=== PATIENT | male | born 1970 | race Caucasian/White ===

== ENCOUNTER 2018-06-09 04:34 | Emergency (ER) | payer OTHER ==
[~2018-06-09 04:34] MED LIST: HYDR12.558 PO; IBUP-1618 PO; KET10 PO; LISI-1 PO; LISI-374 PO; LOR5 PO; METO-259 PO; OMEP-153 PO; SIMV-42 PO
--- NOTE | 2018-06-09 04:35 | ER Report ---
History and Physical Time Seen By MD: 04:35 HPI/ROS CHIEF COMPLAINT: Left flank pain HISTORY OF PRESENT ILLNESS: Patient is a 47-year-old male here with complaints of left-sided flank pain which started approximately 12:30 last night. Patient r eports nausea without vomiting, pain located in the "kidney area". Patient does report having difficulty urinating, radiation of pain into the left lower quadrant of the abdomen. Patient is afebrile, hemodynamically stable at time of evaluation. Patient did have a prior history of a small left-sided kidney stone in 2017 that presented in a similar fashion. REVIEW OF SYSTEMS: Constitutional: No fever, no chills. Eyes: No discharge. ENT: No sore throat. Cardiovascular: No chest pain, no palpitations. Respiratory: No cough, no shortness of breath. Gastrointestinal: + left sided abdominal pain, + nausea without vomiting, + left CVA tenderness. Genitourinary: + difficulty urinating Musculoskeletal: No back pain. Skin: No rashes. Neurological: No headache. Allergies: Coded Allergies: No Known Drug Allergies (Unverified , 06/09/18) Home Meds Active Scripts Tamsulosin Hcl (FLOMAX) 0.4 Mg Cap.er.24h, 0.4 MG PO QDAY, #14 CAP 0 Refills Prov:FELICIANO LINDSAY DO 06/09/18 Ondansetron 4 Mg Odt (ONDANSETRON 4 MG ODT) 4 Mg Tab.rapdis, 4 MG PO ONCE, #30 TAB Prov:FELICIANO LINDSAY DO 06/09/18 Tramadol Hcl (TRAMADOL HCL) 50 Mg Tablet, 50 MG PO Q6H PRN for PAIN, #12 TAB 0 Refills Prov:FELICIANO LINDSAY DO 06/09/18 Reported Medications Lisinopril (LISINOPRIL) 40 Mg Tablet, 60 MG PO QDAY, TAB 04/18/16 Metoprolol Succinate (Metoprolol Succinate) 50 Mg Tab.sr.24h, 50 MG PO DAILY 06/17/11 Discontinued Scripts Ketorolac Tromethamine (KETOROLAC TROMETHAMINE) 10 Mg Tab, 10 MG PO Q6H PRN for PAIN, #12 TAB Prov:JARETH COLES MD 04/18/16 Hx Substance Use Disorder: No Hx Alcohol Use: Yes (RARE) Constitutional Vital Sign - Last 24 Hours 06/09/18 04:38 Temp 97.6 Pulse 66 Resp 24 B/P (MAP) 146/91 Pulse Ox 93 O2 Delivery Room Air Physical Exam General Appearance: The patient is alert, has no immediate need for airway protection and no signs of toxicity. Uncomfortable appearing Eyes: Pupils equal and round no pallor or injection. ENT, Mouth: Mucous membranes are moist. Respiratory: There are no retractions, lungs are clear to auscultation. Cardiovascular: Regular rate and rhythm. Gastrointestinal: + tenderness on palpation of left CVA/LLQ abdomen Neurological: No focal deficits Skin: Warm and dry, no rashes. Musculoskeletal: Neck is supple non tender. Extremities are nontender, nonswollen and have full range of motion. DIFFERENTIAL DIAGNOSIS: After history and physical exam differential diagnosis was considered for abdominal pain including but not limited to gastritis and urinary tract infection, ureterolithiasis, musculoskeletal pain Medical Decision Making Data Points Result Diagram: 06/09/18 0451 06/09/18 0451 Laboratory Hematology Test 06/09/18 00:00 06/09/18 04:51 Urine Color Yellow Urine Clarity Slightly-cloudy Urine pH 5.0 pH (4.8-9.5) Urine Specific [place] 1.025 Urine Protein 30 mg/dL (NEGATIVE) Urine Glucose (UA) Negative mg/dL (NEGATIVE) Urine Ketones Negative mg/dL (NEGATIVE) Urine Blood Moderate (NEGATIVE) Urine Nitrite Negative (NEGATIVE) Urine Bilirubin Negative (NEGATIVE) Urine Urobilinogen Negative mg/dL (0.2-1.9) Urine Leukocyte Esterase Negative (NEGATIVE) Urine RBC 10 /HPF (0-2/HPF) Urine WBC 6 /HPF (0-5/HPF) Urine WBC Clumps Few /HPF Urine Squamous Epithelial Cells Few /LPF (</=FEW) Urine Calcium Oxalate Crystals Few /HPF (NONE) Urine Bacteria Few /HPF (NONE-FEW) Urine Mucus Few /HPF (NONE-FEW) Red Blood Count 5.01 M/uL (4.00-5.60) Mean Corpuscular Volume 93.3 fL (80.0-96.0) Mean Corpuscular Hemoglobin 32.7 pg (26.0-33.0) Mean Corpuscular Hemoglobin Concent 35.0 g/dL (32.0-36.0) Red Cell Distribution Width 13.5 % (11.5-14.5) Mean Platelet Volume 10.1 fL (7.2-11.1) Neutrophils (%) (Auto) 41.5 % (39.4-72.5) Lymphocytes (%) (Auto) 43.9 % (17.6-49.6) Monocytes (%) (Auto) 10.4 % (4.1-12.4) Eosinophils (%) (Auto) 3.5 % (0.4-6.7) Basophils (%) (Auto) 0.7 % (0.3-1.4) Nucleated RBC Relative Count (auto) 0.1 /100WBC Neutrophils # (Auto) 3.5 K/uL (2.0-7.4) Lymphocytes # (Auto) 3.7 K/uL (1.3-3.6) Monocytes # (Auto) 0.9 K/uL (0.3-1.0) Eosinophils # (Auto) 0.3 K/uL (0.0-0.5) Basophils # (Auto) 0.1 K/uL (0.0-0.1) Nucleated RBC Absolute Count (auto) 0.01 K/uL Sodium Level 138 mmol/L (137-145) Potassium Level 3.4 mmol/L (3.5-5.0) Chloride Level 107 mmol/L (98-107) Carbon Dioxide Level 21 mmol/L (22-30) Blood Urea Nitrogen 18 mg/dl (9-21) Creatinine 0.70 mg/dl (0.66-1.25) Glomerular Filtration Rate Calc > 60.0 Random Glucose 168 mg/dl (75-110) Calcium Level 9.3 mg/dl (8.4-10.2) Total Bilirubin 0.4 mg/dl (0.2-1.3) Aspartate Amino Transf (AST/SGOT) 30 U/L (0-35) Alanine Aminotransferase (ALT/SGPT) 60 U/L (0-56) Alkaline Phosphatase 143 U/L (0-126) Total Protein 7.0 g/dl (6.3-8.2) Albumin 4.3 g/dl (3.5-5.0) Lipase 172 U/L (23-300) Chemistry Test 06/09/18 00:00 06/09/18 04:51 Urine Color Yellow Urine Clarity Slightly-cloudy Urine pH 5.0 pH (4.8-9.5) Urine Specific [place] 1.025 Urine Protein 30 mg/dL (NEGATIVE) Urine Glucose (UA) Negative mg/dL (NEGATIVE) Urine Ketones Negative mg/dL (NEGATIVE) Urine Blood Moderate (NEGATIVE) Urine Nitrite Negative (NEGATIVE) Urine Bilirubin Negative (NEGATIVE) Urine Urobilinogen Negative mg/dL (0.2-1.9) Urine Leukocyte Esterase Negative (NEGATIVE) Urine RBC 10 /HPF (0-2/HPF) Urine WBC 6 /HPF (0-5/HPF) Urine WBC Clumps Few /HPF Urine Squamous Epithelial Cells Few /LPF (</=FEW) Urine Calcium Oxalate Crystals Few /HPF (NONE) Urine Bacteria Few /HPF (NONE-FEW) Urine Mucus Few /HPF (NONE-FEW) White Blood Count 8.4 k/uL (4.5-11.0) Red Blood Count 5.01 M/uL (4.00-5.60) Hemoglobin 16.4 g/dL (14.0-18.0) Hematocrit 46.7 % (42.0-52.0) Mean Corpuscular Volume 93.3 fL (80.0-96.0) Mean Corpuscular Hemoglobin 32.7 pg (26.0-33.0) Mean Corpuscular Hemoglobin Concent 35.0 g/dL (32.0-36.0) Red Cell Distribution Width 13.5 % (11.5-14.5) Platelet Count 227 K/uL (150-450) Mean Platelet Volume 10.1 fL (7.2-11.1) Neutrophils (%) (Auto) 41.5 % (39.4-72.5) Lymphocytes (%) (Auto) 43.9 % (17.6-49.6) Monocytes (%) (Auto) 10.4 % (4.1-12.4) Eosinophils (%) (Auto) 3.5 % (0.4-6.7) Basophils (%) (Auto) 0.7 % (0.3-1.4) Nucleated RBC Relative Count (auto) 0.1 /100WBC Neutrophils # (Auto) 3.5 K/uL (2.0-7.4) Lymphocytes # (Auto) 3.7 K/uL (1.3-3.6) Monocytes # (Auto) 0.9 K/uL (0.3-1.0) Eosinophils # (Auto) 0.3 K/uL (0.0-0.5) Basophils # (Auto) 0.1 K/uL (0.0-0.1) Nucleated RBC Absolute Count (auto) 0.01 K/uL Glomerular Filtration Rate Calc > 60.0 Calcium Level 9.3 mg/dl (8.4-10.2) Total Bilirubin 0.4 mg/dl (0.2-1.3) Aspartate Amino Transf (AST/SGOT) 30 U/L (0-35) Alanine Aminotransferase (ALT/SGPT) 60 U/L (0-56) Alkaline Phosphatase 143 U/L (0-126) Total Protein 7.0 g/dl (6.3-8.2) Albumin 4.3 g/dl (3.5-5.0) Lipase 172 U/L (23-300) Urinalysis Test 06/09/18 00:00 Urine Color Yellow Urine Clarity Slightly-cloudy Urine pH 5.0 pH (4.8-9.5) Urine Specific [place] 1.025 Urine Protein 30 mg/dL (NEGATIVE) Urine Glucose (UA) Negative mg/dL (NEGATIVE) Urine Ketones Negative mg/dL (NEGATIVE) Urine Blood Moderate (NEGATIVE) Urine Nitrite Negative (NEGATIVE) Urine Bilirubin Negative (NEGATIVE) Urine Urobilinogen Negative mg/dL (0.2-1.9) Urine Leukocyte Esterase Negative (NEGATIVE) Urine RBC 10 /HPF (0-2/HPF) Urine WBC 6 /HPF (0-5/HPF) Urine WBC Clumps Few /HPF Urine Squamous Epithelial Cells Few /LPF (</=FEW) Urine Calcium Oxalate Crystals Few /HPF (NONE) Urine Bacteria Few /HPF (NONE-FEW) Urine Mucus Few /HPF (NONE-FEW) EKG/Imaging Imaging PATIENT NAME: Betito Quiles : 1970 MR: [id number] V: [id number] EXAM DATE: ORDERING PHYSICIAN: FELICIANO LINDSAY TECHNOLOGIST: Location: [facility] Patient: Betito Quiles : 1970 Visit/Account:[id number] Date of Sevice: 06/09/2018 CT ABDOMEN PELVIS W/O CON HISTORY: Left flank pain. History of renal stones. COMPARISON: 04/18/2016. TECHNIQUE: Axial images were obtained from the lung bases through the symphysis pubis without intravenous contrast. Sagittal and coronal reformats were performed. One of the following dose optimization techniques was utilized in the performance of this exam: Automated exposure control; adjustment of the mA a nd/or kV according to the patient's size; or use of an iterative reconstruction technique. Specific details can be referenced in the facility's radiology CT exam operational policy. CONTRAST: None. FINDINGS: Lower chest: There is mild atelectasis. Liver: Liver is diffusely decreased in attenuation and enlarged, measuring 21.5 cm, compatible with hepatic steatosis. There is focal fatty sparing at the gallbladder fossa. Gallbladder/biliary: Normal. Pancreas: Normal. Spleen: Normal. Adrenals: There is a 1.5 cm left adrenal lesion with Hounsfield units of less than 10, compatible with a benign adenoma. It is stable from 2017. There is a smaller one at the medial limb measuring 1.0 cm, also stable. Right adrenal gland is normal. Kidneys/ureters/bladder: There is a 2 mm obstructing calculus in the distal left ureter (image 166 series 2). It causes mild left hydronephrosis and hydroureter. There are 3 nonobstructing calculi within the left kidney, the largest measuring 2 mm in size. There are bilateral renal cysts. The ureters and the bladder are normal. Bladder is relatively decompressed. GI/mesentery/peritoneal cavity: There is no bowel obstruction. There is no wall thickening or pericolonic stranding. The appendix is normal. There is sigmoid and descending colon diverticulosis without diverticulitis. Vessels: There is mild atherosclerotic disease. No aneurysm. Nodes: Normal. Pelvis: There are phleboliths. There is a large fat-containing right inguinal hernia. There is a small fat-containing left inguinal hernia. Bones/vertebra/soft tissues: There is mild degenerative change of the spine. IMPRESSION: 1. 2 mm obstructing calculus in the inferior left kidney causes mild left hydronephrosis and hydroureter. 2. 3 nonobstructing calculi in the left kidney. 3. Hepatic steatosis. It can progress to steatohepatitis and eventual cirrhosis. 4. Diverticulosis without diverticulitis. 5. Bilateral fat-containing inguinal hernias, large on the right and small on the left. ED Course/Re-evaluation ED Course Patient is a 47-year-old male here with complaints of left sided flank pain with radiation to the left lower quadrant the abdomen. Pain started approximately 6:30 last night and has been persistent. Patient reports decreased urine output, difficulty urinating. Patient had a prior history of a small left-sided ur eterolith which presented in a similar fashion in 2017. Patient is afebrile, hemodynamically stable at time of evaluation. CT abdomen and pelvis stone protocol is completed. Patient was given normal saline bolus, Toradol, intravenous lidocaine for analgesia. Patient is a 2 mm distal ureteral stone on the left side. Patient was given Flomax, tramadol, Zofran for home treatment. Recommend close PCP follow-up. Return precautions provided. Decision to Disposition Date: Jun 09, 2018 Decision to Disposition Time: 05:48 Depart Departure Latest Vital Signs Vital Signs Date Time Temp Pulse Resp B/P (MAP) Pulse Ox O2 Delivery O2 Flow Rate FiO2 06/09/18 04:38 97.6 66 24 146/91 93 Room Air Impression: Primary Impression: Ureterolithiasis Condition: Improved Disposition: HOME OR SELF-CARE New Scripts Tamsulosin Hcl (FLOMAX) 0.4 Mg Cap.er.24h 0.4 MG PO QDAY, #14 CAP 0 Refills Prov: FELICIANO LINDSAY DO 06/09/18 Ondansetron 4 Mg Odt (ONDANSETRON 4 MG ODT) 4 Mg Tab.rapdis 4 MG PO ONCE, #30 TAB Prov: FELICIANO LINDSAY DO 06/09/18 Tramadol Hcl (TRAMADOL HCL) 50 Mg Tablet 50 MG PO Q6H PRN for PAIN, #12 TAB 0 Refills Prov: FELICIANO LINDSAY DO 06/09/18 Patient Instructions: Kidney Stones (ED) Additional Instructions: Please drink plenty of water. You may take 1 tablet of tramadol every 6-8 hours as needed for breakthrough pain. You may take up to 500 mg of naproxen twice daily or ibuprofen 800 mg every 8 hours as needed for primary pain control. You may take Zofran 1 tablet every 4-6 hours as needed for nausea and vomiting. Please take Flomax 1 tablet daily until you pass your Stone or your pain resolves. Your kidney stone was found be 2 mm which will pass spontaneously in a majority of cases. Please follow-up with her family doctor in the next 3-5 days as needed. Please return immediately if you develop persistent nausea, vomiting, worsening pain, fevers or chills. FELICIANO LINDSAY DO Jun 09, 2018 04:35
[2018-06-09] MEDS ORDERED: NS(*) 0.9% 1000 ML BAG 1,000 ML IV ONE ×2 (04:47→04:55)
[2018-06-09] MEDS ORDERED: LIDOCAINE 2% IV 100 MG/5ML SYR IVP ONE (04:50)
[2018-06-09] MEDS ORDERED: ONDANSETRON 4 MG/2 ML VIAL IVP ONE (04:50)
[2018-06-09] MEDS ORDERED: KETOROLAC 30 MG/ML VIAL IVP ONE (04:50)
[2018-06-09 05:23] LABS: PLATELET COUNT, AUTOMATED 227 K/uL (150-450)
--- NOTE | 2018-06-09 05:46 | RADIOLOGY IMAGING REPORT ---
FACILITY: [facility] PATIENT NAME: Betito Quiles : 1970 MR: [id number] V: [id number] EXAM DATE: ORDERING PHYSICIAN: FELICIANO LINDSAY TECHNOLOGIST: Location: [facility] Patient: Betito Quiles : 1970 Visit/Account:[id number] Date of Sevice: 06/09/2018 CT ABDOMEN PELVIS W/O CON HISTORY: Left flank pain. History of renal stones. COMPARISON: 04/18/2016. TECHNIQUE: Axial images were obtained from the lung bases through the symphysis pubis without intrave nous contrast. Sagittal and coronal reformats were performed. One of the following dose optimization techniques was utilized in the performance of this exam: Autom ated exposure control; adjustment of the mA and/or kV according to the patient's size; or use of an i terative reconstruction technique. Specific details can be referenced in the facility's radiology CT exam operational policy. CONTRAST: None. FINDINGS: Lower chest: There is mild atelectasis. Liver: Liver is diffusely decreased in attenuation and enlarged, measuring 21.5 cm, compatible with h epatic steatosis. There is focal fatty sparing at the gallbladder fossa. Gallbladder/biliary: Normal. Pancreas: Normal. Spleen: Normal. Adrenals: There is a 1.5 cm left adrenal lesion with Hounsfield units of less than 10, compatible wit h a benign adenoma. It is stable from 2017. There is a smaller one at the medial limb measuring 1.0 c m, also stable. Right adrenal gland is normal. Kidneys/ureters/bladder: There is a 2 mm obstructing calculus in the distal left ureter (image 166 [place] 2). It causes mild left hydronephrosis and hydroureter. There are 3 nonobstructing calculi withi n the left kidney, the largest measuring 2 mm in size. There are bilateral renal cysts. The ureters a nd the bladder are normal. Bladder is relatively decompressed. GI/mesentery/peritoneal cavity: There is no bowel obstruction. There is no wall thickening or pericol onic stranding. The appendix is normal. There is sigmoid and descending colon diverticulosis without diverticulitis. Vessels: There is mild atherosclerotic disease. No aneurysm. Nodes: Normal. Pelvis: There are phleboliths. There is a large fat-containing right inguinal hernia. There is a smal l fat-containing left inguinal hernia. Bones/vertebra/soft tissues: There is mild degenerative change of the spine. IMPRESSION: 1. 2 mm obstructing calculus in the inferior left kidney causes mild left hydronephrosis and hydroure ter. 2. 3 nonobstructing calculi in the left kidney. 3. Hepatic steatosis. It can progress to steatohepatitis and eventual cirrhosis. 4. Diverticulosis without diverticulitis. 5. Bilateral fat-containing inguinal hernias, large on the right and small on the left. Report Dictated By: Victoria Mckeon at 06/09/2018 5:32 AM Report E-Signed By: Victoria Mckeon at 06/09/2018 5:42 AM WSN:[id number]
[2018-06-09] MEDS ORDERED: TAMS0.4C25 PO (05:50)
[2018-06-09] MEDS ORDERED: ONDA4TAB9 PO (05:50)
[2018-06-09] MEDS ORDERED: TRAM-420 PO (05:50)
[2018-06-09] MEDS ORDERED: fentaNYL CITR 100 MCG/2 ML AMP IVP ONE (05:50)
[2018-06-09 05:56] VITALS: BP 144/89
== END 2018-06-09 06:15 | disposition home or self-care (01) ==
LOC: ER 04:47
DX: N20.1 Calculus of ureter (principal)
CPT/HCPCS: 74176; 81001; 83690; 85025; 96374; 96375; 99285; J1885; J2001; J2405; J3010; J7030; 82040; 82247; 82310; 82374; 82435; 82565; 82947; 84075; 84132; 84155; 84295; 84450; 84460; 84520